=== PATIENT | male | born 2000 | race Two or more races ===

== ENCOUNTER 2024-03-02 03:11 | Emergency (ER) | payer OTHER ==
[~2024-03-02] VITALS: Ht 170.2 cm; Wt 72.0 kg
[2024-03-02 03:12] VITALS: BP 121/80; PULSE 94; RESP 24; TEMP 98
[2024-03-02 03:30] LABS: BASOPHILS % (AUTO) 0.7 % (0.0-2.0); EOSINOPHILS % (AUTO) 1.4 % (1.0-6.0); HEMATOCRIT 43.1 % (41-53); HEMOGLOBIN 15.1 g/dL (13.5-17.5); LYMPHOCYTES % (AUTO) 33.6 % (22.0-44.0); MEAN CORPUSCULAR HEMOGLOBIN 30.1 pg (26.0-34.0); MEAN CORPUSCULAR HGB CONC 34.9 G/dL (31.0-37.0); MEAN CORPUSCULAR VOLUME 86 fL (80-100); MONOCYTES # (AUTO) 0.5 K/uL (0.1-1.0); MONOCYTES % (AUTO) 5.6 % (2.0-9.0); NEUTROPHILS # (AUTO) 5.2 K/uL (1.8-7.7); NEUTROPHILS % (AUTO) 58.7 % (40.0-70.0); PLATELET COUNT (AUTO) 309 K/uL (150-450); RED CELL DISTRIBUTION WIDTH 12.6 % (11.5-14.5); WHITE BLOOD COUNT (AUTO) 8.8 K/uL (4.5-11.0)
[2024-03-02 03:39] LABS: ANION GAP 7 mmol/L (8-16); CALCIUM, TOTAL 9.1 mg/dL (8.8-10.5); CARBON DIOXIDE 30 mmol/L (22-29); CHLORIDE 103 mmol/L (98-107); CREATININE 0.84 mg/dL (0.60-1.30); GLOMERULAR FILTR. RATE CALC > 60 mL/min (>60); GLUCOSE,RANDOM 107 mg/dL (70-110); POTASSIUM 4.1 mmol/L (3.5-5.1); SODIUM SERUM 140 mmol/L (136-145); UREA NITROGEN, BLOOD 15 mg/dL (7-18)
[2024-03-02 03:45] LABS: ALANINE AMINOTRANSFERASE 21 U/L (12-78); ALBUMIN 4.2 g/dL (3.4-5.0); ALKALINE PHOSPHATASE 85 U/L (46-116); ASPARTATE AMINOTRANSFERASE 17 U/L (15-37); BILIRUBIN,TOTAL 0.3 mg/dL (0.1-1.0); LIPASE 24 U/L (16-77)
[2024-03-02] MEDS: SODIUM CHLORIDE 0.9% 1,000 ML IV ONE (03:45)
[2024-03-02] MEDS: KETOROLAC TROMETHAMINE 30 MG/ML VIAL IVP ONE (03:46)
[2024-03-02] MEDS: ONDANSETRON HCL 4 MG/2 ML VIAL IVP ONE (03:46)
[2024-03-02] MEDS: MORPHINE SULFATE 2 MG/ML SYRINGE IVP ONE (03:46)
[2024-03-02] MEDS: FAMOTIDINE 20 MG/2 ML VIAL IVP ONE (03:49)
[2024-03-02] MEDS ORDERED: IOHEXOL 350 MG/ML 100 ML VIAL ONE (04:15)
[2024-03-02] MEDS ORDERED: SODIUM CHLORIDE 0.9% 100 ML ONE (04:15)
[2024-03-02 04:49] LABS: APPEARANCE,URINE CLEAR (CLEAR); BILIRUBIN,URINE NEGATIVE (NEGATIVE); COLOR,URINE LIGHT YELLOW (YELLOW); GLUCOSE, URINE (UA) NEGATIVE (NEGATIVE); KETONES,URINE NEGATIVE (NEGATIVE); LEUKOCYTE ESTERASE ,URINE NEGATIVE (NEGATIVE); NITRATE,URINE NEGATIVE (NEGATIVE); OCCULT BLOOD,URINE NEGATIVE (NEGATIVE); PROTEIN,URINE TRACE mg/dL (NEGATIVE); UROBILINOGEN,URINE <=1.0 mg/dL (<=1.0)
[2024-03-02] MEDS ORDERED: ONDA-104 PO (05:06)
[2024-03-02] MEDS ORDERED: ACET-3385 PO (05:06)
== END 2024-03-02 05:57 | disposition home or self-care (01) ==
LOC: EMS 03:13
DX: R10.9 Unspecified abdominal pain (principal)
CPT/HCPCS: 99285; 74177; 96374; 96375; 96361; 80053; 81003; 83690; 85025; 36415; J3490; J1885; J2270; J2405; Q9967; J7030; J7050